=== PATIENT | female | born 1985 | race Caucasian/White ===

== ENCOUNTER 2016-04-30 17:45 | Emergency (ER) | payer OTHER ==
[~2016-04-30] VITALS: Ht 172.7 cm; Wt 63.5 kg
[2016-04-30 19:55] VITALS: BP 109/76
== END 2016-04-30 20:22 | disposition home or self-care (01) ==
LOC: ER 18:00
DX: J03.90 Acute tonsillitis, unspecified (principal)

== ENCOUNTER 2023-07-21 11:18 | Emergency (ER) | payer MEDICAID, OTHER ==
[~2023-07-21] VITALS: Ht 172.7 cm; Wt 85.1 kg
[2023-07-21] MEDS: KETOROLAC TROMETH 60MG/2ML VIAL IM ONE (13:16)
[2023-07-21] MEDS: cefTRIAXone SOD 1,000 MG VL IM ONE (13:16)
[2023-07-21 13:17] VITALS: BP 128/88; PULSE 88; RESP 18; TEMP 98.7; O2SAT 98
[2023-07-21] MEDS ORDERED: AMOX500T3 PO (13:37)
== END 2023-07-21 14:02 | disposition home or self-care (01) ==
LOC: ER 11:18
DX: J03.90 Acute tonsillitis, unspecified (principal)
CPT/HCPCS: 96372; 99284; J0696; J1885